=== PATIENT | male | born 1990 | race African-American/Black ===

== ENCOUNTER 2018-05-23 22:13 | Emergency (ER) | payer OTHER ==
[~2018-05-23] VITALS: Ht 177.8 cm; Wt 104.3 kg
[2018-05-23 22:27] VITALS: BP 122/83
== END 2018-05-23 23:16 | disposition left against medical advice (07) ==
LOC: M.ERS 22:13
DX: Z53.21 Procedure and treatment not carried out due to patient leaving prior to being seen by health care provider (principal)

== ENCOUNTER 2018-05-26 16:37 | Emergency (ER) | payer OTHER ==
[~2018-05-26] VITALS: Ht 177.8 cm; Wt 104.3 kg
[2018-05-26 17:29] LABS: INFLUENZA A ANTIGEN None Detected (None Detect); INFLUENZA B ANTIGEN None Detected (None Detect)
[2018-05-26] MEDS ORDERED: NASONEX17 GM NASAL (17:41)
[2018-05-26 17:48] VITALS: BP 125/92
== END 2018-05-26 17:49 | disposition home or self-care (01) ==
LOC: M.ERS 16:37
PROVIDERS: Physician Assistant
DX: J32.1 Chronic frontal sinusitis (principal)